=== PATIENT | male | born 1950 | race Caucasian/White ===

== ENCOUNTER → 2016-06-17 | Day surgery (SDC) | payer BC ==
[~2016-06-17] MED LIST: DEXAMETHASONE 4 MG/ML VIAL IV ONE; FENTANYL 100 MCG/2 ML VIAL IV PRN; FENTANYL 250 MCG/5 ML VIAL IV ONE; HYDROmorphone 1 MG INJECTION IV PRN; ISOVUE-300 (61%) 50 ML ONE; LABETALOL 20 MG/4 ML SYRINGE IV PRN; LIDOCAINE 100 MG PFS IV ONE; Levofloxacin 500 mg/100 ml D5W 500 MG/100 ML RTU IV ONE; MEPERIDINE 25 MG/ML TUBEX IV PRN; ONDANSETRON HCL 4 MG ODT TAB PO PRN; ONDANSETRON HCL 4 MG/2 ML VIAL IV ONE; ONDANSETRON HCL 4 MG/2 ML VIAL IV PRN; PROPOFOL 200 MG/20 ML VIAL IV ONE; SUCCINYLCHOLINE 20 MG/1 ML INJ 10 ML MDV IV ONE; hydrALAZINE 20 MG/ML VIAL IV PRN
--- NOTE | 2016-06-17 06:39 | HIM.ANES ---
Anesthesia Evaluation & Plan Diagnoses: MALIGNANT NEOPLASM OF BLADDER, UNSPECIFIED (06/17/16) Consented Procedure: cystoscopy, right retrograde pyelogram, possible ureteroscopy, laser ablation of bladder tumor - Focused Review of Systems Cardiac History: Yes: Hx Hypertension, Hx Heart Attack (PER EKG/DR DENIS), Hx Cardia Arrhythmia (PALPITATIONS WHEN BLOOD PRESSURE WOULD DROP), Hx Cardiac Disorders, Hx Congestive Heart Failure (GRADE 1) HEENT: Yes: Hx Hearing Impairment ([place]), Hx Vision Problem (WE[place]ASSES), Other HEENT Problems Respiratory: Yes: Hx Chronic Obstructive Pulmonary Disease (COPD), Hx Snoring, Hx Home O2 (2L NC at night), Hx Recent Cold/Flu Gastrointestinal: Yes: Hx Gastrointestinal Disorders Neurological/Musculoskeletal: No: Hx Neurological Disorders Psychological: No Hx Mental/Emotional Disorders Blood/Autoimmune: No: Hx AIDS, Hx Hepatitis (type) Smoking Status: Former smoker Hx Stress Test (date): Yes (2013) Hx Echocardiogram (date): Yes (02/26/16 EF 60-65% GRADE 1 IMPAIRED DIASTOLIC DYSFUNCTION) Other Surgical History: EXPLORATORY LAPAROTOMY WITH SPLEENECTOMY 03/08/2016 TURB - Focused Physical Exam NPO since: 06/16/16 1800 Mallampati: Class II Thyromental Distance: Greater than 3 Neck: Full Range of Motion Cardiovascular/Chest: Normal Respiratory: Decreased breath sounds Any problems with anesthesia, including nausea and vomiting?: No Any relatives with a history of Malignant Hyperthermia?: No Beta Catherine given (if appropriate): N/A Does the patient have a history of Motion Sickness-: No Other: Allergies Allergy/AdvReac Type Severity Reaction Status Date / Time No Known Allergies Allergy Verified 06/17/16 06:04 Home Medications Medication Instructions Recorded Last Taken Type Albuterol Sulfate [Proair Hfa] 2 puff INH Q4-6H PRN 03/02/16 03/01/16 History Budesonide/Formoterol Fumarate 2 puff INH BID 03/02/16 06/17/16 04:30 History [Symbicort 160-4.5 Mcg Inhaler] Tamsulosin HCl [Flomax] 0.4 mg PO BID 03/02/16 03/03/16 20:00 History Furosemide [Lasix] 20 mg PO DAILY PRN 03/04/16 2 Weeks Ago History Testosterone Cypionate 100 mg IM .[id number] 03/04/16 06/15/16 History Clopidogrel Bisulfate [Plavix] 75 mg PO DAILY 06/09/16 06/09/16 History Losartan Potassium 50 mg PO DAILY 06/09/16 06/17/16 04:30 History Height and Weight Patient's height 5 ft 4 in Patient's weight 78.018 kg Vital Signs Temperature 97.6 F 06/17/16 05:57 Pulse Rate 76 06/17/16 05:57 Respiratory Rate 18 06/17/16 05:57 Blood Pressure 170/85 06/17/16 05:57 Pulse Oxygen Saturation 99 06/17/16 05:57 - Anesthetic Plan Anesthesia Type: General ASA Class: 3 -: I have examined this patient and reviewed the medical record. The patient has been assessed prior to anesthesia. Risks and benefits of anesthesia and anesthetic technique options have been discussed and all questions answered. The patient accepts the risk and desires me to proceed with the planned anesthetic.
--- NOTE | 2016-06-17 08:49 | HIMOPRPT ---
PROCEDURE: DATE OF PROCEDURE: 06/17/16 PREOPERATIVE DIAGNOSIS: Recurrent superficial bladder tumor . POSTOPERATIVE DIAGNOSIS: Recurrent superficial bladder tumor . PROCEDURE PERFORMED: Cystoscopy, right ureteral catheterization and retrograde pyelogram, and laser fulguration of bladder tumor. SURGEON: Peter Garza MD ANESTHESIA USED: General. INDICATION FOR PROCEDURE: The patient is a 66 WHITE M with a history of superficial bladder tumor . Surveillance cystoscopy reveals recurrence over the right ureteral orifice. The patient is brought in now for right ureteral catheterization and laser fulguration of tumor . PROCEDURE IN DETAIL: The patient was brought into the operating room, placed on the table in the supine position. After adequate general anesthesia was achieved , the patient was carefully placed in dorsal lithotomy and the perineum prepped and draped in sterile fashion for the performance of cystoscopy. Initially, the 23-St Helenian scope was passed under direct vision into the bladder. Inspection of the bladder revealed superficial bladder tumor over the right ureteral orifice, normal left ureteral orifice. No other specific lesions were seen. A Nitinol wire was then placed and advanced through the right ureteral orifice and the open-ended catheter advanced over this into the ureter. Using 4 -6 cc of contrast retrograde pyelogram was obtained which showed no filling defect within the collecting system and normal bifurcated renal pelvis. There was good efflux of contrast through the ureter. The open-ended catheter remained in the ureter and this allowed good delineation of the bladder tumor. Using the laser the area of the tumor was then fulgurated . When we were done, there was good hemostasis. No other lesions or suspicious areas were noted. Bladder was intact. The ureteral catheter was removed and the orifice was noted to be preserved. The bladder was then filled. The cystoscope was removed. A 16-St Helenian Rico was placed to temporarily drain the bladder. The patient tolerated all this well. The patient was then awakened and taken to the recovery room in good condition.
[2016-06-17 09:08] VITALS: TEMP 97.3
[2016-06-17 10:16] VITALS: PULSE 76
[2016-06-17 13:10] VITALS: BP 156/68
--- NOTE | 2016-06-17 13:10 | SC.ANESPOS ---
Post-Anesthesia Note LOC: Fully Awake Post-Anesthesia Assessment: Awake, Returned to Baseline, Hemodynamically Stable , Pain Control Adequate Phase I & II Recovery Complete: Yes Apparent Anesthesia Complication: No : N PACU Discharge Time: 09:13 - Vital Signs Blood Pressure: 156/68 Pulse: 76 Resp Rate: 18 O2 Sat: 96 Temp: 97.3 F - Comments Anesthesia Discharge Time Report Time 09:13
== END ==
LOC: SDC 05:43
PROVIDERS: ATTEND Urology
PROC: 0T5B8ZZ Destruction of Bladder, Via Natural or Artificial Opening Endoscopic (ICD-10-PCS; 2016-06-17)
PROC: BT1F1ZZ Fluoroscopy of Left Kidney, Ureter and Bladder using Low Osmolar Contrast (ICD-10-PCS; 2016-06-17)
PROC: 0T5B8ZZ Destruction of Bladder, Via Natural or Artificial Opening Endoscopic (ICD-10-PCS; principal; 2016-06-17 07:15)
DX: C67.9 Malignant neoplasm of bladder, unspecified (principal); N40.1 Benign prostatic hyperplasia with lower urinary tract symptoms
CPT/HCPCS: 52005; 52214; J0330; J1100; J1956; J2001; J2405; J3010; J3490